=== PATIENT | male | born 1990 | race Two or more races ===

== ENCOUNTER 2019-09-09 05:55 | Inpatient (IN) | payer MEDICAID, OTHER ==
[2019-09-09] VITALS (16 sets, daily range): BP systolic 120–138; BP diastolic 71–98
[~2019-09-09] VITALS: Ht 167.6 cm; Wt 69.9 kg
[2019-09-09] MEDS ORDERED: SODIUM CHLORIDE 0.9% 1,000 ML IV ONE (06:09)
[2019-09-09] MEDS ORDERED: ACETAMINOPHEN 325MG TABLET PO ONE (06:15)
[2019-09-09 06:42] LABS: HEMATOCRIT. 40.4 % (42.0-52.0); HEMOGLOBIN. 13.9 g/dL (14.0-18.0); MEAN CORPUSCULAR HEMOGLOBIN 28.3 pg (28.0-32.0); MEAN PLATELET VOLUME 7.6 fl (7.4-10.4); PLATELET 287 x1000/uL (130-400); RED BLOOD CELL COUNT 4.92 mill/uL (4.7-6.1)
[2019-09-09] MEDS ORDERED: PIPERACILLIN/TAZ 3.375G PREMIX 50 ML IV ONE (06:45)
[2019-09-09] MEDS ORDERED: VANCOMYCIN 1 G PREMIX 200 ML IV ONE (06:45)
[2019-09-09 06:49] LABS: BG BASE EXCESS 1.8 mmol/L (-2.0-2.0); BG CARBOXYHEMOGLOBIN 0.4 % (0.5-1.5); BG DEOXYHEMOGLOBIN 5.6 % (0.0-5.0); BG FRACTION INSPIRED OXYGEN 40; BG METHEMOGLOBIN 0.3 % (0.0-1.5); BG OXYGEN SATURATION 94.4 % (92.0-98.5); BG OXYHEMOGLOBIN 93.7 % (94.0-97.0); BG PCO2 30.9 mmHg (35.0-45.0); BG PH 7.508 (7.350-7.450); BG SAMPLE SITE RIGHT RADIAL; BG TOTAL HEMOGLOBIN 14.2 g/dL (12.0-18.0); BG VENT MODE NASAL CANNULA
[2019-09-09 06:55] LABS: D-DIMER 0.68 mg/L FEU (<0.50); INR 1.1; PROTHROMBIN TIME 11.4 sec (9.6-11.0)
[2019-09-09 06:59] LABS: CHLORIDE 95 mEq/L (98-107)
[2019-09-09 07:07] LABS: PLATELET ESTIMATE NORMAL
[2019-09-09 07:09] LABS: CREATINE KINASE 334 IU/L (39-308)
[2019-09-09 07:43] LABS: CLARITY URINE CLEAR (CLEAR); COLOR URINE YELLOW (YELLOW); KETONES URINE NEGATIVE (NEGATIVE); LEUKOCYTE ESTERASE URINE NEGATIVE (NEGATIVE); NITRITE URINE NEGATIVE (NEGATIVE); OCCULT BLOOD URINE NEGATIVE (NEGATIVE); PROTEIN URINE NEGATIVE (NEGATIVE); SPECIFIC GRAVITY URINE 1.008 (1.005-1.030); UROBILINOGEN URINE 0.2 E.U./dL (0.2-1.0)
[2019-09-09] MEDS ORDERED: DIPHENHYDRAMINE 50MG/ML VIAL IV PRN (09:30)
[2019-09-09] MEDS ORDERED: ACETAMINOPHEN 325MG TABLET PO PRN (09:30)
[2019-09-09] MEDS ORDERED: CLONIDINE 0.1MG TABLET PO PRN (09:30)
[2019-09-09] MEDS ORDERED: ONDANSETRON HCL 4MG/2ML INJ IV PRN (09:30)
[2019-09-09 09:55] LABS: PHOSPHORUS 2.3 mg/dL (2.5-4.9)
[2019-09-09] MEDS ORDERED: ENOXAPARIN 40MG/0.4ML SYR SUBCUT SCH (10:00)
[2019-09-09] MEDS: ALBUTEROL 6.7GM HFA INHALER ORI SCH ×2 (10:00→16:00)
[2019-09-09 10:27] LABS: BG BASE EXCESS -0.1 mmol/L (-2.0-2.0); BG CARBOXYHEMOGLOBIN 0.4 % (0.5-1.5); BG DEOXYHEMOGLOBIN 1.8 % (0.0-5.0); BG FRACTION INSPIRED OXYGEN 99.8; BG HCO3 ACT 23.9 mmol/L (22.0-26.0); BG METHEMOGLOBIN 0.3 % (0.0-1.5); BG OXYGEN SATURATION 98.2 % (92.0-98.5); BG OXYHEMOGLOBIN 97.5 % (94.0-97.0); BG PCO2 36.9 mmHg (35.0-45.0); BG PH 7.429 (7.350-7.450); BG PO2 109.3 mmHg (75.0-100.0); BG SAMPLE SITE RIGHT BRACHIAL; BG VENT MODE MASK - NRB
[2019-09-09] MEDS ORDERED: CEFTRIAXONE 1 G PREMIX 50 ML IV SCH (11:00)
[2019-09-09] MEDS: METHYLPREDNISOLONE SOD SUCC 40 MG/ML VIAL IV SCH ×2 (11:31→17:31)
[2019-09-09] MEDS: ENOXAPARIN 80MG/0.8ML SYR SUBCUT SCH ×2 (11:31→20:41)
[2019-09-09] MEDS: GUAIFENESIN 600MG ER TABLET PO SCH ×2 (11:31→20:40)
[2019-09-09] MEDS ORDERED: AZITHROMYCIN 500 MG in DEXT 5% WATER 250 ML IV NR ×2 (12:00→16:00)
[2019-09-09] MEDS ORDERED: FENTANYL CITRATE/PF 500 MCG in SODIUM CHLORIDE 0.9% 40 ML IV PRN (12:45)
[2019-09-09] MEDS ORDERED: PHENYLEPHRINE 20 MG in DEXT 5% WATER 248 ML IV PRN (12:45)
[2019-09-09] MEDS ORDERED: PROPOFOL 10MG/ML 100ML 100 ML IV PRN (12:45)
[2019-09-09] MEDS ORDERED: FENTANYL 1,000 MCG in SODIUM CHLORIDE 0.9% 100 ML IV PRN (13:00)
[2019-09-09] MEDS ORDERED: ACET-2708 PO (18:10)
[2019-09-09] MEDS ORDERED: DEXTROSE 50% WATER 50ML SYRINGE IV PRN (20:00)
[2019-09-09] MEDS: BLOOD SUGAR DIAGNOSTIC STRIP TEST SCH (20:50)
[2019-09-09] MEDS: INSULIN LISPRO 100 UNITS/ML SUBCUT SCH (20:50)
[2019-09-10] VITALS: BP 119/80
[2019-09-10 04:00] VITALS: BP 122/74
[2019-09-10] MEDS: ALBUTEROL 6.7GM HFA INHALER ORI SCH ×5 (05:28→22:30)
[2019-09-10] MEDS: BLOOD SUGAR DIAGNOSTIC STRIP TEST SCH ×4 (05:36→21:37)
[2019-09-10] MEDS: INSULIN LISPRO 100 UNITS/ML SUBCUT SCH ×4 (05:36→22:06)
[2019-09-10 06:43] LABS: HEMATOCRIT. 40.6 % (42.0-52.0); HEMOGLOBIN. 13.9 g/dL (14.0-18.0); MEAN CORPUSCULAR HEMOGLOBIN 28.3 pg (28.0-32.0); MEAN CORPUSCULAR VOLUME 82.3 fL (80.0-94.0); MEAN PLATELET VOLUME 7.5 fl (7.4-10.4); PLATELET 361 x1000/uL (130-400); RED BLOOD CELL COUNT 4.93 mill/uL (4.7-6.1); RED CELL DISTRIBUTION WIDTH 14.9 % (11.6-14.6)
[2019-09-10 07:14] LABS: CHLORIDE 103 mEq/L (98-107)
[2019-09-10 07:22] LABS: LDL CHOLESTEROL 120 mg/dL (5-100)
[2019-09-10 07:24] LABS: HDL CHOLESTEROL 34 mg/dL (40-59)
[2019-09-10 08:00] VITALS: BP 109/72
[2019-09-10] MEDS: ENOXAPARIN 80MG/0.8ML SYR SUBCUT SCH ×2 (08:55→22:07)
[2019-09-10] MEDS: METHYLPREDNISOLONE SOD SUCC 40 MG/ML VIAL IV SCH ×2 (08:55→16:50)
[2019-09-10] MEDS: GUAIFENESIN 600MG ER TABLET PO SCH ×2 (08:55→22:06)
[2019-09-10] MEDS: AZITHROMYCIN 250 MG in DEXT 5% WATER 250 ML IV SCH (11:15)
[2019-09-10 11:56] LABS: PLATELET ESTIMATE NORMAL
[2019-09-10 12:00] VITALS: BP 121/79
[2019-09-10] MEDS ORDERED: CEFTRIAXONE 1 G PREMIX 50 ML IV NR (13:00)
[2019-09-10 16:00] VITALS: BP 109/69
[2019-09-10 20:00] VITALS: BP 114/78
[2019-09-11] VITALS: BP 110/72
[2019-09-11 04:00] VITALS: BP 108/65
[2019-09-11] MEDS: ALBUTEROL 6.7GM HFA INHALER ORI SCH ×4 (05:26→21:45)
[2019-09-11] MEDS: BLOOD SUGAR DIAGNOSTIC STRIP TEST SCH ×4 (06:09→21:43)
[2019-09-11] MEDS: INSULIN LISPRO 100 UNITS/ML SUBCUT SCH ×4 (06:44→23:35)
[2019-09-11 07:07] LABS: CHLORIDE 103 mEq/L (98-107)
[2019-09-11 07:09] LABS: HEMATOCRIT. 40.4 % (42.0-52.0); HEMOGLOBIN. 13.7 g/dL (14.0-18.0); LYMPHOCYTES % 7.5 % (20.0-50.0); MEAN CORPUSCULAR VOLUME 82.7 fL (80.0-94.0); MEAN PLATELET VOLUME 8.4 fl (7.4-10.4); MONOCYTES % 7.3 % (2.0-8.0); NEUTROPHILS % 85.2 % (40.0-76.0); PLATELET 419 x1000/uL (130-400); RED BLOOD CELL COUNT 4.88 mill/uL (4.7-6.1); RED CELL DISTRIBUTION WIDTH 15.1 % (11.6-14.6)
[2019-09-11] MEDS: ENOXAPARIN 80MG/0.8ML SYR SUBCUT SCH ×2 (09:42→21:45)
[2019-09-11] MEDS: METHYLPREDNISOLONE SOD SUCC 40 MG/ML VIAL IV SCH ×2 (09:43→16:58)
[2019-09-11] MEDS: GUAIFENESIN 600MG ER TABLET PO SCH ×2 (09:43→21:45)
[2019-09-11 12:00] VITALS: BP 106/75
[2019-09-11] MEDS: AZITHROMYCIN 250 MG in DEXT 5% WATER 250 ML IV SCH (13:00)
[2019-09-11] MEDS: CEFTRIAXONE 1 G PREMIX 50 ML IV SCH (13:01)
[2019-09-11 16:00] VITALS: BP 117/77
[2019-09-11 20:00] VITALS: BP 128/65
[2019-09-12] VITALS: BP 114/63
[2019-09-12 04:00] VITALS: BP 116/61
[2019-09-12] MEDS: ALBUTEROL 6.7GM HFA INHALER ORI SCH ×4 (04:55→22:19)
[2019-09-12 06:32] LABS: BASOPHILS % 0.1 % (0.0-2.0); CHLORIDE 102 mEq/L (98-107); HEMATOCRIT. 42.5 % (42.0-52.0); HEMOGLOBIN. 14.3 g/dL (14.0-18.0); LYMPHOCYTES % 7.9 % (20.0-50.0); MEAN CORPUSCULAR HEMOGLOBIN 27.8 pg (28.0-32.0); MEAN CORPUSCULAR VOLUME 82.5 fL (80.0-94.0); MEAN PLATELET VOLUME 7.7 fl (7.4-10.4); MONOCYTES % 9.4 % (2.0-8.0); NEUTROPHILS % 82.6 % (40.0-76.0); PLATELET 467 x1000/uL (130-400); RED BLOOD CELL COUNT 5.14 mill/uL (4.7-6.1); RED CELL DISTRIBUTION WIDTH 14.6 % (11.6-14.6)
[2019-09-12] MEDS: BLOOD SUGAR DIAGNOSTIC STRIP TEST SCH ×4 (06:35→21:12)
[2019-09-12] MEDS: INSULIN LISPRO 100 UNITS/ML SUBCUT SCH ×4 (06:46→21:00)
[2019-09-12 08:00] VITALS: BP 122/80
[2019-09-12] MEDS: METHYLPREDNISOLONE SOD SUCC 40 MG/ML VIAL IV SCH ×2 (08:52→17:02)
[2019-09-12] MEDS: GUAIFENESIN 600MG ER TABLET PO SCH ×2 (08:52→21:12)
[2019-09-12] MEDS: ENOXAPARIN 80MG/0.8ML SYR SUBCUT SCH ×2 (08:53→21:12)
[2019-09-12 12:00] VITALS: BP 121/81
[2019-09-12] MEDS: CEFTRIAXONE 1 G PREMIX 50 ML IV SCH (12:11)
[2019-09-12] MEDS: AZITHROMYCIN 250 MG in DEXT 5% WATER 250 ML IV SCH (12:12)
[2019-09-12] MEDS ORDERED: REMDESIVIR 200 MG in SODIUM CHLORIDE 0.9% 250 ML IV SCH (14:00)
[2019-09-12 16:00] VITALS: BP 121/83
[2019-09-12 20:00] VITALS: BP 117/74
[2019-09-13] VITALS: BP 126/76
[2019-09-13 04:00] VITALS: BP 126/76
[2019-09-13] MEDS: BLOOD SUGAR DIAGNOSTIC STRIP TEST SCH ×4 (05:35→20:27)
[2019-09-13] MEDS: ALBUTEROL 6.7GM HFA INHALER ORI SCH ×4 (05:38→20:42)
[2019-09-13] MEDS: INSULIN LISPRO 100 UNITS/ML SUBCUT SCH ×4 (05:38→20:45)
[2019-09-13 07:49] LABS: BASOPHILS % 0.4 % (0.0-2.0); HEMATOCRIT. 43.7 % (42.0-52.0); MEAN CORPUSCULAR HEMOGLOBIN 28.2 pg (28.0-32.0); MEAN CORPUSCULAR VOLUME 82.2 fL (80.0-94.0); MEAN PLATELET VOLUME 7.6 fl (7.4-10.4); NEUTROPHILS % 79.6 % (40.0-76.0); PLATELET 507 x1000/uL (130-400); RED BLOOD CELL COUNT 5.32 mill/uL (4.7-6.1); RED CELL DISTRIBUTION WIDTH 14.6 % (11.6-14.6)
[2019-09-13 07:55] LABS: CHLORIDE 101 mEq/L (98-107)
[2019-09-13 08:00] VITALS: BP 135/96
[2019-09-13] MEDS: GUAIFENESIN 600MG ER TABLET PO SCH ×2 (08:24→20:42)
[2019-09-13] MEDS: METHYLPREDNISOLONE SOD SUCC 40 MG/ML VIAL IV SCH ×2 (08:24→17:08)
[2019-09-13] MEDS: ENOXAPARIN 80MG/0.8ML SYR SUBCUT SCH ×2 (08:24→20:42)
[2019-09-13] MEDS: CEFTRIAXONE 1 G PREMIX 50 ML IV SCH (11:21)
[2019-09-13] MEDS: AZITHROMYCIN 250 MG in DEXT 5% WATER 250 ML IV SCH (11:22)
[2019-09-13 12:00] VITALS: BP 125/84
[2019-09-13] MEDS: REMDESIVIR 100 MG in SODIUM CHLORIDE 0.9% 250 ML IV SCH (14:39)
[2019-09-13 16:00] VITALS: BP 113/73
[2019-09-13 19:50] VITALS: BP 126/86
[2019-09-14] VITALS: BP 121/86
[2019-09-14 04:00] VITALS: BP_SYST 116; BP_SYST 125; BP_DIAS 84
[2019-09-14] MEDS: ALBUTEROL 6.7GM HFA INHALER ORI SCH ×4 (05:31→23:23)
[2019-09-14] MEDS: BLOOD SUGAR DIAGNOSTIC STRIP TEST SCH ×4 (07:49→21:22)
[2019-09-14] MEDS: INSULIN LISPRO 100 UNITS/ML SUBCUT SCH ×4 (07:49→21:23)
[2019-09-14] MEDS: ENOXAPARIN 80MG/0.8ML SYR SUBCUT SCH ×2 (08:40→21:22)
[2019-09-14] MEDS: GUAIFENESIN 600MG ER TABLET PO SCH ×2 (08:41→21:22)
[2019-09-14] MEDS: METHYLPREDNISOLONE SOD SUCC 40 MG/ML VIAL IV SCH ×2 (08:41→18:50)
[2019-09-14 08:44] LABS: BASOPHILS % 0.3 % (0.0-2.0); EOSINOPHILS % 0.1 % (0.0-5.0); HEMATOCRIT. 43.9 % (42.0-52.0); LYMPHOCYTES % 15.6 % (20.0-50.0); MEAN CORPUSCULAR HEMOGLOBIN 28.4 pg (28.0-32.0); MEAN CORPUSCULAR VOLUME 82.9 fL (80.0-94.0); MEAN PLATELET VOLUME 7.9 fl (7.4-10.4); PLATELET 487 x1000/uL (130-400); RED BLOOD CELL COUNT 5.29 mill/uL (4.7-6.1); RED CELL DISTRIBUTION WIDTH 14.8 % (11.6-14.6)
[2019-09-14 08:49] LABS: CHLORIDE 102 mEq/L (98-107)
[2019-09-14 09:00] VITALS: BP 116/85
[2019-09-14 12:00] VITALS: BP 112/81
[2019-09-14] MEDS: CEFTRIAXONE 1 G PREMIX 50 ML IV SCH (14:05)
[2019-09-14] MEDS: REMDESIVIR 100 MG in SODIUM CHLORIDE 0.9% 250 ML IV SCH (14:05)
[2019-09-14 20:00] VITALS: BP 118/81
[2019-09-15] VITALS: BP 108/77
[2019-09-15 04:00] VITALS: BP 125/84
[2019-09-15] MEDS: ALBUTEROL 6.7GM HFA INHALER ORI SCH ×4 (04:49→22:21)
[2019-09-15] MEDS: INSULIN LISPRO 100 UNITS/ML SUBCUT SCH ×4 (07:45→21:34)
[2019-09-15] MEDS: BLOOD SUGAR DIAGNOSTIC STRIP TEST SCH ×4 (07:45→21:34)
[2019-09-15 08:00] VITALS: BP 109/73
[2019-09-15] MEDS: METHYLPREDNISOLONE SOD SUCC 40 MG/ML VIAL IV SCH ×2 (08:59→16:58)
[2019-09-15] MEDS: GUAIFENESIN 600MG ER TABLET PO SCH ×2 (08:59→21:34)
[2019-09-15] MEDS: ENOXAPARIN 80MG/0.8ML SYR SUBCUT SCH ×2 (09:00→21:33)
[2019-09-15 12:00] VITALS: BP 116/77
[2019-09-15] MEDS: REMDESIVIR 100 MG in SODIUM CHLORIDE 0.9% 250 ML IV SCH (14:02)
[2019-09-15 16:00] VITALS: BP 115/80
[2019-09-15 20:00] VITALS: BP 110/77
[2019-09-16] VITALS: BP 114/79
[2019-09-16 04:00] VITALS: BP 105/79
[2019-09-16] MEDS: ALBUTEROL 6.7GM HFA INHALER ORI SCH ×4 (04:25→22:00)
[2019-09-16 05:03] LABS: CHLORIDE 102 mEq/L (98-107)
[2019-09-16] MEDS: BLOOD SUGAR DIAGNOSTIC STRIP TEST SCH ×4 (06:53→20:38)
[2019-09-16 08:00] VITALS: BP 117/76
[2019-09-16] MEDS: INSULIN LISPRO 100 UNITS/ML SUBCUT SCH ×4 (08:01→20:40)
[2019-09-16] MEDS: ENOXAPARIN 80MG/0.8ML SYR SUBCUT SCH ×2 (09:25→20:38)
[2019-09-16] MEDS: METHYLPREDNISOLONE SOD SUCC 40 MG/ML VIAL IV SCH (09:26)
[2019-09-16] MEDS: GUAIFENESIN 600MG ER TABLET PO SCH ×2 (09:26→20:38)
[2019-09-16 12:00] VITALS: BP 110/78
[2019-09-16] MEDS: REMDESIVIR 100 MG in SODIUM CHLORIDE 0.9% 250 ML IV SCH (14:28)
[2019-09-16 16:00] VITALS: BP 123/83
[2019-09-16 20:00] VITALS: BP 106/76
[2019-09-17] VITALS: BP 110/75
[2019-09-17 04:00] VITALS: BP 109/73
[2019-09-17] MEDS: ALBUTEROL 6.7GM HFA INHALER ORI SCH ×4 (04:14→20:51)
[2019-09-17 06:55] LABS: CHLORIDE 104 mEq/L (98-107)
[2019-09-17] MEDS: BLOOD SUGAR DIAGNOSTIC STRIP TEST SCH ×4 (07:30→20:40)
[2019-09-17 08:00] VITALS: BP 112/68
[2019-09-17] MEDS: INSULIN LISPRO 100 UNITS/ML SUBCUT SCH ×4 (08:10→21:08)
[2019-09-17] MEDS: GUAIFENESIN 600MG ER TABLET PO SCH ×2 (09:34→20:40)
[2019-09-17] MEDS: ENOXAPARIN 80MG/0.8ML SYR SUBCUT SCH ×2 (09:34→20:40)
[2019-09-17 12:00] VITALS: BP 135/74
[2019-09-17 16:00] VITALS: BP 138/72
[2019-09-17 20:00] VITALS: BP 135/72
[2019-09-18] VITALS: BP 132/75
[2019-09-18 04:00] VITALS: BP 130/75
[2019-09-18] MEDS: ALBUTEROL 6.7GM HFA INHALER ORI SCH ×2 (06:23→10:13)
[2019-09-18] MEDS: BLOOD SUGAR DIAGNOSTIC STRIP TEST SCH ×2 (07:47→11:47)
[2019-09-18] MEDS: INSULIN LISPRO 100 UNITS/ML SUBCUT SCH ×2 (07:47→11:47)
[2019-09-18 08:00] VITALS: BP 114/88
[2019-09-18] MEDS: GUAIFENESIN 600MG ER TABLET PO SCH (08:37)
[2019-09-18] MEDS: ENOXAPARIN 80MG/0.8ML SYR SUBCUT SCH (08:38)
[2019-09-18 09:10] LABS: BASOPHILS % 0.1 % (0.0-2.0); EOSINOPHILS % 0.6 % (0.0-5.0); HEMATOCRIT. 47.6 % (42.0-52.0); HEMOGLOBIN. 16.1 g/dL (14.0-18.0); LYMPHOCYTES % 19.2 % (20.0-50.0); MEAN CORPUSCULAR HEMOGLOBIN 28.3 pg (28.0-32.0); MEAN CORPUSCULAR VOLUME 83.6 fL (80.0-94.0); MEAN PLATELET VOLUME 7.9 fl (7.4-10.4); MONOCYTES % 6.3 % (2.0-8.0); NEUTROPHILS % 73.8 % (40.0-76.0); PLATELET 445 x1000/uL (130-400); RED BLOOD CELL COUNT 5.69 mill/uL (4.7-6.1); RED CELL DISTRIBUTION WIDTH 15.2 % (11.6-14.6)
[2019-09-18 09:27] LABS: CHLORIDE 103 mEq/L (98-107)
[2019-09-18 12:00] VITALS: BP 123/87
[2019-09-18 12:51] VITALS: BP 123/87
== END 2019-09-18 16:30 | disposition home or self-care (01) | DRG 720 ==
LOC: ER 06:14 → 7EST 06:43 → ENRESERV 07:48 → MICUNO 13:15 → 7EST 16:14 → 7WST 09-14 03:50
PROVIDERS: ADMIT Internal Medicine; ATTEND Internal Medicine
DX: A41.89 Other specified sepsis (principal); J96.01 Acute respiratory failure with hypoxia; U07.1 COVID-19; E87.1 Hypo-osmolality and hyponatremia; D68.59 Other primary thrombophilia; J12.89 Other viral pneumonia; E86.1 Hypovolemia; D72.810 Lymphocytopenia; R74.0 Nonspecific elevation of levels of transaminase and lactic acid dehydrogenase [LDH]; Z79.1 Long term (current) use of non-steroidal anti-inflammatories (NSAID)
CPT/HCPCS: 36415; 36600; 71045; 80048; 80053; 80061; 80076; 81003; 82375; 82550; 82728; 82805; 82962; 83605; 83615; 83735; 84100; 84145; 84443; 84484; 85025; 85379; 85384; 86140; 86850; 86900; 87804; 93005; 99291; J0456; J0696; J1200; J1650; J1815; J2543; J2920; J3370; J7030; J7050; J7060; Q9957; U0003-CS